=== PATIENT | female | born 1970 | race Caucasian/White ===

== ENCOUNTER 2017-03-12 06:23 | Emergency (ER) | payer MEDICARE, MEDICAID ==
[2017-03-12 06:34] VITALS: BP 167/104
--- NOTE | 2017-03-12 07:01 | ED Physician Documentation ---
PD HPI HEENT - Stated complaint Stated Complaint: DENTAL PAIN - Chief complaint Chief Complaint: Heent - History obtained from History obtained from: Patient - History of Present Illness Timing - onset: How many days ago (3-4) Timing - duration: Days (3-4) Timing - details: Gradual onset, Still present (much worse the past 4-6 hours.) Location: Tooth (left lower) Worsens: Temperatures, Other (palpation) Associated symptoms: Swollen nodes. No: Fever, Congestion, Rhinorrhea Similar symptoms before: Has not had sx before Recently seen: Not recently seen (has not been to dentist in long time) Review of Systems Constitutional: denies: Fever Nose: denies: Rhinorrhea / runny nose, Congestion Throat: reports: Dental pain / toothache. denies: Sore throat, Swollen tonsils Cardiac: denies: Chest pain / pressure Respiratory: denies: Cough PD PAST MEDICAL HISTORY - Past Medical History Past Medical History: Yes Other Past Medical History: Marcela Alcantara Virus - Past Surgical History Past Surgical History: Yes General: Cholecystectomy HEENT: Tonsil/Adenoidectomy - Present Medications Home Medications: Ambulatory Orders Medication Instructions Recorded Confirmed Clindamycin HCl [Cleocin HCl] 300 mg PO TID #21 capsule 03/12/17 Oxycodone HCl/Acetaminophen 1 each PO Q6H PRN #20 tablet 03/12/17 [Percocet 5-325 mg Tablet] - Allergies Allergies/Adverse Reactions: Allergies Allergy/AdvReac Type Severity Reaction Status Date / Time Penicillins AdvReac Hives Verified 03/12/17 06:34 - Social History Does the pt smoke?: No Smoking Status: Never smoker Does the pt drink ETOH?: No Does the pt have substance abuse?: No - Immunizations Immunizations are current?: Yes - POLST Patient has POLST: No PD ED PE NORMAL - Vitals Vital signs reviewed: Yes - General General: Alert and oriented X 3, Well developed/nourished, Other (appears in pain) - HEENT HEENT: Pharynx benign. No: Dentition benign (several teeth with decay to gumline. Left lower tooth with decay, redness of the gum and local swelling without fluctuance.) - Neck Neck: Supple, no meningeal sign, Other (mild left anterior adenopathy) - Cardiac Cardiac: RRR, No murmur - Respiratory Respiratory: Clear bilaterally Results - Vitals Vitals: Vital Signs - 24 hr 03/12/17 06:32 Temperature 37.0 C Heart Rate 94 Respiratory 17 Rate Blood Pressure 167/104 H O2 Saturation 99 Oxygen O2 Source Room air PD MEDICAL DECISION MAKING - ED course Complexity details: considered differential (encouraged patient to make dental appt. ), d/w patient Departure - Departure Disposition: 01 Home, Self Care Clinical Impression: Infected dental caries Condition: Stable Record reviewed to determine appropriate education?: Yes Instructions: ED Tooth Pain Follow-Up: [facility] [Provider Group] Prescriptions: Clindamycin HCl [Cleocin HCl] 300 mg PO TID #21 capsule Oxycodone HCl/Acetaminophen [Percocet 5-325 mg Tablet] 1 each PO Q6H PRN #20 tablet PRN Reason: Pain Comments: Continue anti-inflammatory such as ibuprofen 2-3 times a day. Add clindamycin antibiotic as directed. Use Tylenol or Percocet if needed for pain. Call dental clinic such as [facility] to arrange appointments. If this does not improve well, the other treatments are root canal and extraction both of which are dental procedures. Even if this does improve, they will need caring for so that does not recur. Discharge Date/Time: 03/12/17 07:26
[2017-03-12] MEDS ORDERED: ONDANSETRON ODT 4 MG TABLET TL STA (07:10)
[2017-03-12] MEDS ORDERED: oxyCOD/ACETAMIN 5 MG/325 MG TABLET PO STA (07:10)
[2017-03-12] MEDS ORDERED: CLINDAMYCIN 150 MG CAPSULE PO STA (07:10)
[2017-03-12] MEDS ORDERED: DEXAMETHASONE 10 MG/ML VIAL PO STA (07:10)
[2017-03-12] MEDS ORDERED: ONDANSETRON ODT 4 MG TABLET ONE (07:19)
[2017-03-12] MEDS ORDERED: CLINDAMYCIN 150 MG CAPSULE PO ONE (07:19)
[2017-03-12] MEDS ORDERED: DEXAMETHASONE 10 MG/ML VIAL ONE (07:19)
[2017-03-12] MEDS ORDERED: oxyCOD/ACETAMIN 5 MG/325 MG TABLET PO ONE (07:19)
== END 2017-03-12 07:26 | disposition home or self-care (01) ==
LOC: ED 06:23
DX: K02.9 Dental caries, unspecified (principal); K04.7 Periapical abscess without sinus
CPT/HCPCS: 99283; A9270; Q0162